=== PATIENT | female | born 1945 | race Two or more races ===

== ENCOUNTER 2021-03-12 12:36 | Emergency (ER) | payer MEDICAID ==
[2021-03-12 12:36] VITALS: BP 115/51
[2021-03-12] MEDS ORDERED: cefTRIAXone SOD 1,000 MG VL ONE (13:33)
[2021-03-12] MEDS ORDERED: cefTRIAXone SOD 1,000 MG VL IM ONE (13:45)
[2021-03-12] MEDS ORDERED: ACETAMINOPHEN 325 MG TAB PO ONE (13:45)
== END 2021-03-12 14:09 | disposition home or self-care (01) ==
LOC: ER 12:36
DX: K04.7 Periapical abscess without sinus (principal); I10 Essential (primary) hypertension; Z88.0 Allergy status to penicillin
CPT/HCPCS: 41800; 96372; 99284; J0696